=== PATIENT | female | born 1995 | race Caucasian/White ===

== ENCOUNTER 2016-08-09 17:19 | Emergency (ER) | payer SELFPAY ==
[~2016-08-09] VITALS: Ht 167.6 cm; Wt 72.6 kg
[2016-08-09] MEDS ORDERED: LIDOCAINE 2% 20 ML (XYLOCAINE) VIAL INJ ONE (17:30)
[2016-08-09] MEDS ORDERED: CEPHALEXIN 250 MG (KEFLEX) CAP PO ONE (17:30)
[2016-08-09] MEDS ORDERED: CEPH-507 PO (17:35)
--- NOTE | 2016-08-09 17:36 | ED Lower Extremity ---
General Chief Complaint: Laceration Stated Complaint: R LEG LACERATION BY KNIFE Source: patient Exam Limitations: no limitations History of Present Illness Time seen by provider: 17:31 Initial Comments To ER with a laceration to the lateral aspect of the right thigh distally. She was cooking dinner this evening when she was using a knife and she fell and somehow stuck herself in the side of the leg with a knife. She had to remove the knife upon standing up. Tetanus is up-to-date. Onset: just prior to arrival Severity: moderate Pain/Injury Location: right leg Method of Injury: fell Allergies and Home Medications Allergies Coded Allergies: No Known Drug Allergies (Unverified , 08/09/16) Home Medications Cephalexin 500 Mg Capsule, 500 MG PO TID PRN for PAIN-MODERATE, #15 Prescribed by: YADIRA JENSEN on 08/09/16 4516 Constitutional: see HPI EENTM: see HPI Respiratory: no symptoms reported Cardiovascular: no symptoms reported Genitourinary: no symptoms reported Musculoskeletal: no symptoms reported Skin: see HPI Psychiatric/Neurological: No Symptoms Reported Past Bizzyth-Axbjzt-Avdzzf Hx Patient Social History Recent Foreign Travel: No Contact w/Someone Who Travel: No Physical Exam Vital Signs Vital Sign - Last 12Hours 08/09/16 17:29 Temp 98.0 Pulse 79 Resp 16 B/P (MAP) 119/64 Pulse Ox 97 O2 Delivery Room Air Capillary Refill : General Appearance: WD/WN, no apparent distress HEENT: PERRL/EOMI, normal ENT inspection Neck: non-tender, full range of motion Respiratory: no respiratory distress, no accessory muscle use Gastrointestinal: normal bowel sounds, non tender, soft Hips: bilateral hip non-tender, bilateral hip normal inspection, bilateral hip normal range of motion Legs: right leg other (there is a 1.5 cm laceration to the distal lateral right thigh. There is no active bleeding. Distally, she reports numbness from the level of the puncture wound down the anterior lateral aspect of the lower leg secondary dorsal aspect of her foot. Sensation is intact to the plantar surface of her foot in the medial and posterior aspect of her lower leg. Would have concern about peroneal nerve injury.) Knees: bilateral knee non-tender, bilateral knee normal inspection, bilateral knee normal range of motion Ankles: bilateral ankle non-tender, bilateral ankle normal inspection, bilateral ankle normal range of motion Feet: bilateral foot non-tender, bilateral foot normal inspection, bilateral foot normal range of motion Neurologic/Psychiatric: alert, normal mood/affect, oriented x 3 Skin: normal color, warm/dry Laceration Repair : Wound Location: Lower Extremities Wound Length (cm): 1.5 Wound's Depth, Shape: into muscle Wound Explored: clean Irrigated w/ Saline (ccs): 40 Anesthesia: 1% Lidocaine Suture: Ethlion Suture Size: 4-0 Number of Sutures: 2 Layer Closure?: 1 Number Deep Layer Sutures: 0 Progress Since this would be considered more of a puncture wound than a laceration, I loosely closed this with 2 simple interrupted sutures to allow for drainage of any infectious products should that develop. Prophylactic antibiotics. Progress/Results/Core Measures Results/Orders My Orders Orders - YADIRA JENSEN APRN Lidocaine 2% Injection 20 Ml (Xylocaine (08/09/16 17:30) Cephalexin Capsule (Keflex Capsule) (08/09/16 17:30) Knee, Right, 3 Views (08/09/16 17:30) Medications Given in ED Current Medications Medications Dose Ordered Sig/Anna Route Start Time Stop Time Status Last Admin Dose Admin Cephalexin HCl 500 mg ONCE ONCE PO 08/09/16 17:30 08/09/16 17:32 DC 08/09/16 17:38 500 MG Lidocaine HCl 4 ml ONCE ONCE INJ 08/09/16 17:30 08/09/16 17:32 DC 08/09/16 17:39 4 ML Vital Signs/I&O Vital Sign - Last 12Hours 08/09/16 08/09/16 17:29 17:39 Temp 98.0 98.0 Pulse 79 Resp 16 B/P (MAP) 119/64 Pulse Ox 97 O2 Delivery Room Air Departure Impression Impression: Primary Impression: Leg laceration Disposition: 01 HOME, SELF-CARE Condition: Stable Departure-Patient Inst. Decision time for Depature: 18:00 Patient Instructions: Laceration Repair With Stitches (DC) Add. Discharge Instructions: 1. Keep this area clean dry and covered for the remainder of tonight. You may shower allowing water to run over it starting tomorrow. However, do not soak it in water such as a hot tub, bath tub, swimming pool until stitches have been removed 3. Return to ER in 7-10 days to have the stitches removed. Return to ER before then for any sign of infection such as increasing redness or swelling or drainage from the site. Take antibiotics as directed All discharge instructions reviewed with patient and/or family. Voiced understanding. Scripts Cephalexin (Keflex) 500 Mg Capsule 500 MG PO TID Y for PAIN-MODERATE, #15 CAP Prov: YADIRA JENSEN APRN 08/09/16 Images Extremities-Lower 1 - Laceration YADIRA JENSEN APRN Aug 09, 2016 17:36
--- NOTE | 2016-08-09 17:55 | Diagnostic Imaging Report ---
INDICATION: Laceration with knife. COMPARISON: None available. TECHNIQUE: Three views of right knee. FINDINGS AND IMPRESSION: 1. There is a laceration in the lateral aspect of the distal thigh, but no radiopaque foreign body. 2. No acute osseous abnormality. Dictated by: Dictated on workstation # [id number]
[2016-08-09 18:06] VITALS: BP 119/64
--- OUTSIDE RECORDS SUMMARY | 2016-08-11 17:26 | XMS REPORT | Continuity of Care Document ---
Author Author [facility] Organization [facility] Address Unknown Phone Unavailable Allergies Medications Problems Procedures Results Encounters ACCT No. Visit Date/Time Discharge Status Pt. Type Provider Facility Loc./Unit Complaint [id number] 05/02/2015 14:08:21 05/02/2015 23: 59:59 [facility] Outpatient Clarice Perez [id number] 04/11/2015 12:18:23 04/11/2015 23: 59:59 [facility] Outpatient Lukasz Allen
== END 2016-08-09 18:06 | disposition home or self-care (01) ==
LOC: ER 17:22
DX: S71.111A Laceration without foreign body, right thigh, initial encounter (principal); W01.118A Fall on same level from slipping, tripping and stumbling with subsequent striking against other sharp object, initial encounter; W26.0XXA Contact with knife, initial encounter; Y93.G3 Activity, cooking and baking
CPT/HCPCS: 12001; 73562

== ENCOUNTER 2016-08-20 15:01 | Emergency (ER) | payer SELFPAY ==
[~2016-08-20] VITALS: Ht 162.6 cm; Wt 72.6 kg
[~2016-08-20 15:01] MED LIST: CEPH-507 PO
[2016-08-20 15:20] VITALS: BP 118/70
--- OUTSIDE RECORDS SUMMARY | 2016-08-20 18:41 | XMS REPORT | Continuity of Care Document ---
Author Author [facility] Organization [facility] Address Unknown Phone Unavailable Allergies Medications Problems Procedures Results Encounters ACCT No. Visit Date/Time Discharge Status Pt. Type Provider Facility Loc./Unit Complaint [id number] 05/02/2015 14:08:21 05/02/2015 23: 59:59 [facility] Outpatient Clarice Perez [id number] 04/11/2015 12:18:23 04/11/2015 23: 59:59 [facility] Outpatient Lukasz Allen
== END 2016-08-20 15:18 | disposition home or self-care (01) ==
LOC: EDUNIT# 15:01 → ER 15:06
DX: Z48.02 Encounter for removal of sutures (principal)